=== PATIENT | male | born 1965 | race African-American/Black ===

== ENCOUNTER 2022-10-01 05:16 | Emergency (ER) | payer OTHER ==
[~2022-10-01] VITALS: Ht 170.2 cm; Wt 64.4 kg
[2022-10-01 05:25] VITALS: BP 115/70
--- NOTE | 2022-10-01 05:34 | NUR ---
PT TAKEN TO ER BED 3
--- NOTE | 2022-10-01 05:45 | NUR ---
REPORT [facility] , PT C/O CP,SOB. PT ALSO ADMITS HAVIT AUDITORY HALLUCINATION, NO SO OR HI
--- NOTE | 2022-10-01 06:10 | NUR ---
Patient being evaluated by physician at bedside.
[2022-10-01] MEDS ORDERED: ALBUTEROL 0.083% 2.5 MG/3 ML NEBU INH ONE (06:15)
[2022-10-01] MEDS ORDERED: IPRATROPIUM 0.02% 0.5 MG/2.5 ML NEBU INH ONE (06:15)
[2022-10-01 06:40] LABS: BASOPHILS # (AUTO) 0.1 K/uL (0.00-0.22); BASOPHILS % (AUTO) 1.9 % (0.0-2.0); EOSINOPHILS # (AUTO) 0.4 K/uL (0-0.4); EOSINOPHILS % (AUTO) 7.4 % (0.0-4.0); HEMOGLOBIN 10.9 g/dL (12.0-18.0); LYMPHOCYTES # (AUTO) 2.5 K/uL (2.0-11.5); LYMPHOCYTES % (AUTO) 49.4 % (20.5-51.1); MEAN CORPUSCULAR HEMOGLOBIN 27 pg (27-31); MEAN CORPUSCULAR HGB CONC 33 g/dL (33-37); MEAN CORPUSCULAR VOLUME 80.1 fL (80-94); MONOCYTES # (AUTO) 0.4 K/uL (0.8-1.0); MONOCYTES % (AUTO) 8.4 % (1.7-9.3); NEUTROPHILS # (AUTO) 1.7 K/uL (1.8-7.7); NEUTROPHILS % (AUTO) 32.9 % (42.2-75.2); PLATELET COUNT (AUTO) 446 K/uL (140-450); RED BLOOD CELL COUNT(AUTO) 4.12 MIL/uL (4.20-6.10); RED CELL DISTRIBUTION WIDTH 20.9 % (11.6-13.7); WHITE BLOOD COUNT (AUTO) 5.1 K/uL (4.8-10.8)
[2022-10-01 07:02] LABS: ALBUMIN 4.2 g/dL (3.4-5.0); ANION GAP 16.7 (8-16); ASPARTATE AMINOTRANSFERASE 39 U/L (15-37); CARBON DIOXIDE 23.7 mmol/L (21-32); CHLORIDE 105 mmol/L (98-107); CREATININE 1.5 mg/dL (0.6-1.3); GFR ARICAN-AMERICAN 62 mL/min (>90); GLUCOSE 95 mg/dL (74-106); POTASSIUM 4.4 mmol/L (3.5-5.1); SODIUM SERUM 141 mmol/L (136-145); TOTAL BILIRUBIN 0.2 mg/dL (0.0-1.0); UREA NITROGEN, BLOOD 16 mg/dL (7-18)
[2022-10-01] MEDS ORDERED: predniSONE 20 MG TAB PO ONE (07:30)
--- NOTE | 2022-10-01 08:19 | NUR ---
PT BIB BROTHER FOR SOB, PT AOX4, BREATHING UNLABORED, SPEAKING IN FULL SENTENCES, PT REQUESTED BREAKFAST, ORDER PLACED, PENDING DISPO, NAD.
[2022-10-01] MEDS ORDERED: PRED20TA5 PO (08:43)
[2022-10-01] MEDS ORDERED: ALBU0.0912 IH (08:43)
[2022-10-01 09:16] VITALS: BP 111/63
--- NOTE | 2022-10-01 09:18 | NUR ---
Patient discharged with v/s stable. Written and verbal after care instructions given and explained. Patient alert, oriented and verbalized understanding of instructions. Ambulatory with steady gait. All questions addressed prior to discharge. ID band removed. Patient advised to follow up with PMD. Rx of ALBUTEROL,PREDNISONE given. Patient educated on indication of medication including possible reaction and side effects. Opportunity to ask questions provided and answered.
--- NOTE | 2022-10-01 09:18 | NUR ---
The patient's care was reviewed and supervised by [facility], RN.
== END 2022-10-01 09:16 | disposition home or self-care (01) ==
LOC: MED 05:16
DX: S82.891A Other fracture of right lower leg, initial encounter for closed fracture (principal); J98.01 Acute bronchospasm; R07.9 Chest pain, unspecified; R06.02 Shortness of breath; F17.200 Nicotine dependence, unspecified, uncomplicated; X58.XXXA Exposure to other specified factors, initial encounter; Y93.89 Activity, other specified; Y92.89 Other specified places as the place of occurrence of the external cause; Y99.8 Other external cause status
CPT/HCPCS: 36415; 71045; 73610; 80053; 84484; 85025; 93005; 94640; 99285; J7512; J7613; J7644; Q0092

== ENCOUNTER 2022-11-27 03:04 | Emergency (ER) | payer OTHER ==
[~2022-11-27] VITALS: Ht 167.6 cm; Wt 64.5 kg
[~2022-11-27 03:04] MED LIST: ALBU0.0912 IH; PRED20TA5 PO
[2022-11-27 03:10] VITALS: BP 130/73; PULSE 102; RESP 16; TEMP 97.8; O2SAT 100
--- NOTE | 2022-11-27 03:10 | NUR ---
to bed ambulatory
--- NOTE | 2022-11-27 03:20 | NUR ---
pt on bed. awake and responsive. not in distress. on monitor
[2022-11-27] MEDS ORDERED: KETOROLAC 60 MG/2 ML VIAL IM ONE (03:35)
--- NOTE | 2022-11-27 04:13 | NUR ---
pt resting on bed with eyes close. chest rise and fall symmetrical.
[2022-11-27] MEDS ORDERED: OMEP40EC24 PO (04:45)
[2022-11-27 04:54] VITALS: BP 128/74; PULSE 102; RESP 16; TEMP 97.8; O2SAT 100
--- NOTE | 2022-11-27 04:54 | NUR ---
Patient discharged with v/s stable. Written and verbal after care instructions given and explained. Patient alert, oriented and verbalized understanding of instructions. Ambulatory with steady gait. All questions addressed prior to discharge. ID band removed. Patient advised to follow up with PMD. Rx given to pt. Patient educated on indication of medication including possible reaction and side effects. Opportunity to ask questions provided and answered.
== END 2022-11-27 04:54 | disposition home or self-care (01) ==
LOC: MED 03:04
DX: M25.512 Pain in left shoulder (principal); R10.13 Epigastric pain; F20.9 Schizophrenia, unspecified; Z86.69 Personal history of other diseases of the nervous system and sense organs; Z79.899 Other long term (current) drug therapy
CPT/HCPCS: 96374; 99283; J1885

== ENCOUNTER 2023-02-12 18:44 | Emergency (ER) | payer OTHER ==
[~2023-02-12] VITALS: Ht 167.6 cm; Wt 74.8 kg
[~2023-02-12 18:44] MED LIST changes: +OMEP40EC24 PO
[2023-02-12 19:21] VITALS: BP 129/78; PULSE 94; RESP 16; TEMP 97.4; O2SAT 100
[2023-02-12 19:26] VITALS: BP 129/78; PULSE 94; RESP 16; TEMP 97.4; O2SAT 100
== END 2023-02-12 19:26 | disposition left against medical advice (07) ==
LOC: MED 18:44
DX: R51.9 Headache, unspecified (principal); M54.50 Low back pain, unspecified; Z53.21 Procedure and treatment not carried out due to patient leaving prior to being seen by health care provider
CPT/HCPCS: 99281

== ENCOUNTER 2023-02-12 21:03 | Emergency (ER) | payer OTHER | END 2023-02-12 21:30 | disposition left against medical advice (07) | LOC: MED 21:03 | DX: Z00.8 Encounter for other general examination (principal); Z53.21 Procedure and treatment not carried out due to patient leaving prior to being seen by health care provider ==

== ENCOUNTER 2023-07-11 17:51 | Emergency (ER) | payer OTHER ==
[~2023-07-11] VITALS: Ht 167.6 cm; Wt 65.8 kg
[2023-07-11 17:54] VITALS: BP 136/90; PULSE 89; RESP 20; TEMP 97.7; O2SAT 97
[2023-07-11 18:34] LABS: APPEARANCE,URINE CLOUDY (CLEAR); BILIRUBIN,URINE NEGATIVE (NEGATIVE); BLOOD, URINE 1+ (NEGATIVE); COLOR,URINE OTHER (YELLOW); LEUKOCYTE ESTERASE ,URINE 3+ (NEGATIVE); NITRITE, URINE NEGATIVE (NEGATIVE); PROTEIN,URINE TRACE (NEGATIVE); UGLUCOSE NEGATIVE (NEGATIVE); UROBILINOGEN,URINE 0.2 EU/dL (0.2 - 1)
[2023-07-11 18:50] LABS: BASOPHILS # (AUTO) 0.1 K/uL (0.00-0.22); BASOPHILS % (AUTO) 1.5 % (0.0-2.0); EOSINOPHILS # (AUTO) 0.6 K/uL (0-0.4); EOSINOPHILS % (AUTO) 7.9 % (0.0-4.0); HEMATOCRIT 28.1 % (36-52); HEMOGLOBIN 9.4 g/dL (12.0-18.0); LYMPHOCYTES # (AUTO) 2.4 K/uL (2.0-11.5); MEAN CORPUSCULAR HEMOGLOBIN 29 pg (27-31); MEAN CORPUSCULAR HGB CONC 34 g/dL (33-37); MEAN CORPUSCULAR VOLUME 85.2 fL (80-94); MONOCYTES # (AUTO) 0.8 K/uL (0.8-1.0); MONOCYTES % (AUTO) 9.7 % (1.7-9.3); NEUTROPHILS # (AUTO) 3.9 K/uL (1.8-7.7); NEUTROPHILS % (AUTO) 49.9 % (42.2-75.2); PLATELET COUNT (AUTO) 623 K/uL (140-450); WHITE BLOOD COUNT (AUTO) 7.9 K/uL (4.8-10.8)
[2023-07-11 18:51] LABS: BACTERIA,URINE None Seen /HPF (None Seen); MUCUS,URINE 1+ /LPF (None Seen); SQUAMOUS EPITHELIAL CELL,UR 0-3 (FEW) /LPF (0-3 (FEW))
[2023-07-11 18:59] LABS: ANION GAP 18.5 (8-16); CALCIUM 8.3 mg/dL (8.5-10.1); CARBON DIOXIDE 20.1 mmol/L (21-32); CREATININE 1.7 mg/dL (0.6-1.3); POTASSIUM 4.6 mmol/L (3.5-5.1)
[2023-07-11 19:09] LABS: INR 0.97 (0.8-1.2); PARTIAL THROMBOPLASTIN TIME 27.4 secs (22-35.6); PROTHROMBIN TIME 10.2 secs (10.8-13.4); TOTAL BILIRUBIN 0.1 mg/dL (0.0-1.0); TOTAL PROTEIN, SERUM 9.5 g/dL (6.4-8.2)
[2023-07-11 19:33] LABS: BILIRUBIN,DIRECT 0.1 mg/dL (0.0-0.3)
[2023-07-11] MEDS ORDERED: CEFP200T20 PO (21:24)
[2023-07-11] MEDS: ACETAMINOPHEN EXTRA STRENGTH 500 MG TAB PO ONE (21:26)
[2023-07-11] MEDS ORDERED: ALBU0.0912 IH (21:36)
== END 2023-07-11 21:38 | disposition home or self-care (01) ==
LOC: MED 17:51
DX: N39.0 Urinary tract infection, site not specified (principal); N17.9 Acute kidney failure, unspecified; F10.129 Alcohol abuse with intoxication, unspecified; E86.0 Dehydration; I10 Essential (primary) hypertension; Z88.0 Allergy status to penicillin; Z79.899 Other long term (current) drug therapy; Y90.9 Presence of alcohol in blood, level not specified
CPT/HCPCS: 36415; 80048; 80076; 81001; 85025; 85610; 85730; 87086; 99283; G0482